=== PATIENT | male | born 1990 | race Caucasian/White ===

== ENCOUNTER → 2021-01-07 15:44 | Outpatient (CLI) | payer OTHER, SELFPAY ==
--- NOTE | 2021-01-07 15:48 | DI.MRI.S_ITS ---
PROCEDURE: MR HAND LT WO CON INDICATIONS: Concern for tendon rupture of 3rd finger TECHNIQUE: Noncontrast coronal T1 spin echo and T2 fast spin echo with fat saturation, axial proton density fast spin echo and T2 fast spin echo with fat saturation, sagittal T1 spin echo and STIR through the hand and fingers. COMPARISON: [facility] ([place]), CR, XR HAND LT MIN 3V, 12/16/2020, 8:58. FINDINGS: Image quality: Excellent. Bones: The bones are normally aligned, without marrow contusions or fractures. No intra-osseous lesions. Scattered degenerative subchondral sclerosis and spurring. T2 hyperintense signal change present in the 2nd metacarpal head raising possibility of erosion. Soft tissues: Visualized muscles demonstrate normal bulk and internal signal. No intramuscular masses identified. No ganglion cysts. There is middle finger flexor tenosynovitis and thickening. There is also mild intrasubstance T2 hyperintense signal change raising possibility of low-grade partial rupture at the level of the PIP joint and MCP joint. IMPRESSION: Middle finger flexor tenosynovitis, with possible low-grade partial rupture/strain at the level of the PIP and MCP joints. Dictated by: Davion Piedra M.D. on 01/08/2021 at 10:43 Approved by: Davion Piedra M.D. on 01/08/2021 at 10:49
== END ==
PROVIDERS: PCP Family Medicine; Referring Provider Family Medicine; Visit Provider Family Medicine
DX: S69.92XA Unspecified injury of left wrist, hand and finger(s), initial encounter (principal); M65.842 Other synovitis and tenosynovitis, left hand; X58.XXXA Exposure to other specified factors, initial encounter
CPT/HCPCS: 73218

== ENCOUNTER → 2021-08-22 09:46 | Outpatient (CLI) | payer SELFPAY ==
[2021-08-22 18:19] LABS: Add Manual Diff / Slide Review NO; Basophils Absolute Auto 0 /uL (0-100); Basophils Percent Auto 0.5 % (0-2); Eosinophils Absolute Auto 100 /uL (0-450); Hematocrit 42.2 % (41-53); Hemoglobin 14.5 g/dL (13.5-17.5); Lymphocytes Absolute Auto 1100 /uL (1100-4500); Lymphocytes Percent Auto 24.9 % (25-40); Mean Corpuscular HGB Conc 34.4 % (30-36); Mean Corpuscular Hemoglobin 29.9 PG (26-34); Mean Corpuscular Volume 86.9 fL (80-100); Monocytes Absolute Auto 400 /uL (0-900); Monocytes Percent Auto 8.9 % (3-14); Neutrophils Absolute Auto 2800 /uL (1500-7000); Neutrophils Percent Auto 63.7 % (50-75); Platelet Count 254 X10^3/uL (150-400); Red Blood Cell Count 4.86 X10^6/uL (4.5-5.9); Red Cell Distribution Width 12.7 % (11.6-14.8); White Blood Cell Count 4.3 X10^3/uL (4.5-11.0)
[2021-08-22 18:26] LABS: Alanine Aminotransferase 24 IU/L (<50); Albumin Globulin Ratio 2.1 (1.0-2.8); Alkaline Phosphatase 40 U/L (38-126); Aspartate Aminotransferase 32 IU/L (17-59); Bilirubin Total 0.6 mg/dL (0.2-1.3); Blood Urea Nitrogen 16 mg/dL (9-20); Calcium 9.7 mg/dL (8.4-10.2); Carbon Dioxide 27 mmol/L (22-32); Chloride 103 mmol/L (98-107); Cholesterol 159 mg/dL (140-199); Estimated Glomerular Filt Rate > 60.0 mL/min (>60); Globulin 2.4 g/dL (1.7-4.1); Glucose 92 mg/dL (70-100); HDL Cholesterol 76 mg/dL (40-60); HEMOLYSIS 18 (0-50); LDL Cholesterol Calculated 75 mg/dL (<100); Potassium 4.4 mmol/L (3.4-5.1); Sodium 139 mmol/L (137-145); Total Protein 7.4 g/dL (6.3-8.2); Triglycerides 40 mg/dL (35-150)
[2021-08-22 18:32] LABS: Rheumatoid Factor < 8.6 IU/mL (<12.0)
[2021-08-22 18:48] LABS: Erythrocyte Sedimentation Rate 1 MM/HR (0-15)
[2021-08-26 15:44] LABS: ANA Screen, IFA Negative (.)
== END ==
PROVIDERS: PCP Family Medicine; Visit Provider Family Medicine
DX: Z82.61 Family history of arthritis (principal)
CPT/HCPCS: 80053; 80061; 85025; 85651; 86038; 86430

== ENCOUNTER 2022-09-08 18:54 | Emergency (ER) | payer OTHER, SELFPAY ==
[2022-09-08] VITALS (7 sets, daily range): BP systolic 138–140; BP diastolic 67–84; PULSE 67–95; RESP 16; TEMP 37.2; O2SAT 97–99; BMI 24.3
--- NOTE | 2022-09-08 19:12 | ED_ITS ---
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 The wound does allow visualization into the PIP joint it does look like tendons remain intact. He was seen on [facility] initially an L&I [id number]. The wound itself is fairly clean bleeding is mostly controlled, pictures were taken and sent to Dr. Almonte, orthopedic surgeon on-call. Patient was given a tetanus shot prior to arrival in the emergency department. He denies any recent fever cough chills, abdominal pain nausea or vomiting Related Data Previous Rx's Medication Instructions Recorded cephalexin 500 mg capsule 500 mg PO TID #21 caps 09/08/22 Allergies Allergy/AdvReac Type Severity Reaction Status Date / Time No Known Drug Allergies Allergy Verified 09/08/22 12:49 Review of Systems Review of Systems Narrative: Pertinent positive and negative findings as per HPI Patient History Medical History Family history of inflammatory arthritis Health counseling Screen for STD (sexually transmitted disease) Viral URI Well adult on routine health check Social History Smoking Status: Former smoker Smoking Status: Former smoker Substance Use Type: does not use Exam Initial Vital Signs Initial Vital Signs: Vital Signs Temperature 99.0 F 09/08/22 19:06 Pulse Rate 93 H 09/08/22 19:06 Respiratory Rate 16 09/08/22 19:06 Blood Pressure 140/84 09/08/22 19:06 Pulse Oximetry 99 09/08/22 19:06 Oxygen Delivery Method Room Air 09/08/22 19:06 General: Alert appropriate in no acute distress Respiratory: Able to speak in full sentences, no obvious respiratory distress Skin: No obvious rashes, warm and dry Neurologic: Grossly intact no obvious asymmetries or abnormalities Extremity: Right small finger has an area of skin debridement that crosses the PIP and D IP joints and is approximately 8 mm in diameter. Healthy muscle is appreciated underneath. Tendons on the medial aspect of the PIP joint can be visualized and do appear to be intact. It does look like the PIP joint itself is open. He does have full range of motion throughout the finger. He is neurovascularly intact. He notes that he is right-handed. Psych: appropriate insight and affect, cooperative Course Vital Signs Vital signs: Vital Signs - 8 hr 09/08/22 19:06 Temperature 99.0 F Pulse Rate 93 H Respiratory Rate 16 Blood Pressure 140/84 Pulse Oximetry 99 Oxygen Delivery Method Room Air MDM - Extremity Injury (Upper) MDM Narrative Medical decision making narrative: CC: Right small finger injury, L and I paperwork filed on [employer] this morning Data collected from: patient Differential considered: Superficial wound, tendon injury, infection, open PIP joint, Exam documented above, pertinent findings include: Skin debridement with not enough skin to actually close the wound, PIP joint is open Lab Test were not indicated today Imaging studies independently reviewed: Finger x-rays do not suggest acute bony injury or any metallic foreign bodies Consultations:745pm discussed with Dr. Almonte, pictures were transmitted to her. Her recommendation is thoroughly cleaning out the wound, Xeroform gauze, splint to be used and follow-up with her later this week likely Wednesday patient will be given her phone number and contact information Treatments/ Discussion: Fingers thoroughly cleaned, Xeroform gauze is placed, a aluminum finger splint an additional dressing is placed and he is neurovascularly intact after dressing placement. His discharged home. He is given a dose of Keflex in the emergency department and prescription to continue. Very clear instructions on what finger infections and deep wound infections look like and the importance of very close follow-up should any of the symptoms develop. Questions are answered and he is safe for discharge home Discharge Plan Departure Patient Disposition: Home Clinical Impression: Avulsion of skin of finger Qualifiers: Encounter type: initial encounter Qualified Code(s): S61.209A - Unspecified open wound of unspecified finger without damage to nail, initial encounter Finger laceration with complication Qualifiers: Encounter type: initial encounter Qualified Code(s): S61.219A - Laceration without foreign body of unspecified finger without damage to nail, initial encounter Instructions: DI for Finger Fracture Activity Restrictions/Additional Instructions: Thank you for coming in today Unfortunately, there is not enough skin left over the wound to do a primary closure. I did review the wound along with pictures with our orthopedic doctor on-call, Dr. Almonte. Her recommendations are to make sure the wound is cleaned, and have you follow- up with her later this week. Please call [facility] at [phone] and explain you were seen in the emergency department and need a follow-up with Dr. Almonte for a complicated finger laceration. The wound does appear to go into the 1st joint of your finger but does not look like it involves the tendons. You are at high risk for infection so I have given you the 1st dose of antibiotics, Keflex and a prescription. With any signs of increasing redness or drainage you do need to be seen immediately. You were given a tetanus shot on [place] prior to arrival in the emergency department Prescription was electronically transmitted to [facility] Using 400 mg of ibuprofen (2 [id number] pills) and 1 Tylenol every 6 hours can be very helpful in controlling pain. Please use the Xeroform gauze over the wound, keep the rest of the wound clean and dry in the splint in place until you talk with Dr. Almonte further. Prescriptions: New cephalexin 500 mg capsule 500 mg PO TID Qty: 21 0RF Referrals: Cookie Bustillo PA-C [Primary Care Provider] - Leslee Almonte MD [Physician] - Stand Alone Forms: Patient Portal/API
--- NOTE | 2022-09-08 19:19 | DI.RAD.S_ITS ---
PROCEDURE: XR FINGER RT MIN 2V INDICATIONS: right 5th finger injury - medial aspect and PIP joint TECHNIQUE: AP hand, 2 views of the 5th digit acquired. COMPARISON: None. FINDINGS: Bones: No fractures or dislocations. No suspicious bony lesions. Soft tissues: No suspicious soft tissue calcifications. IMPRESSION: 1. No fracture or dislocation. Dictated by: Will Deluna M.D. on 09/08/2022 at 20:27 Approved by: Will Deluna M.D. on 09/08/2022 at 20:33
[2022-09-08] MEDS: cephALEXin 250 MG CAPSULE 500 MG PO (19:59)
[2022-09-08] MEDS: cephALEXin 250 MG CAP PREPACK 1 BOTTLE MISC (19:59)
== END 2022-09-08 20:18 | disposition home or self-care (01) ==
PROVIDERS: Emergency Provider Emergency Medicine; PCP Physician Assistant
DX: S61.216A Laceration without foreign body of right little finger without damage to nail, initial encounter (principal); W27.0XXA Contact with workbench tool, initial encounter; Y99.0 Civilian activity done for income or pay
CPT/HCPCS: 73140; 99283